=== PATIENT | female | born 1965 | race Caucasian/White ===

== ENCOUNTER 2018-12-25 17:29 | Emergency (ER) | payer OTHER ==
[~2018-12-25] VITALS: Ht 160 cm; Wt 74.8 kg
[~2018-12-25 17:29] MED LIST: DOCU-19 PO; OMEP40CA33 PO; RANI300T7 PO
[2018-12-25 17:34] VITALS: BP_SYST 159
--- NOTE | 2018-12-25 18:28 | NUR ---
Patient to ER bed 5 to gown for evaluation. Side rails up. Report given to Rupert BRADLEY.
--- NOTE | 2018-12-25 18:35 | NUR ---
Patient comes to ER in POV driven by with c/o Lt side abdominal pain radiating to back 07/03. Patient has a HX of IBS and takes motrin, ranitidine, omeprazole at home. Current pain started 5 days ago after a bout of diarrhea, and worsened until she came to ER today. Previous SX include removal of Breast Mass, Hysterectomy, Bladder lift, Repair of deviated septum.
--- NOTE | 2018-12-25 18:35 | NUR ---
Ricardo erica in EDM - 12/25/18 at 1841 by [email or web address] Patient comes to ER in POV driven by with c/o Lt side abdominal pain radiating to back 07/03. Patient has a HX of IBS and takes motrin, ranitidine, ope
--- NOTE | 2018-12-25 18:40 | NUR ---
DR Zuniga at bedside for ER evaluation
[2018-12-25 18:42] LABS: RED BLOOD CELL COUNT(AUTO) 4.66 MIL/uL (4.2-6.2); WHITE BLOOD COUNT (AUTO) 6.1 K/uL (4.8-10.8)
[2018-12-25 18:43] LABS: HEMOGLOBIN 13.7 g/dL (12.0-16.0); MEAN CORPUSCULAR HEMOGLOBIN 29 pg (27-31); MEAN CORPUSCULAR HGB CONC 33 % (32-36); MEAN CORPUSCULAR VOLUME 88 fL (79.0-98.0); NEUTROPHILS % (AUTO) 49.5 % (40.0-70.0); PLATELET COUNT (AUTO) 329 K/uL (130-430); RED CELL DISTRIBUTION WIDTH 13.2 % (9.0-15.0)
[2018-12-25 18:44] LABS: BASOPHILS # (AUTO) 0.1 K/uL (0.0-0.2); BASOPHILS % (AUTO) 1.1 % (0.0-2.0); EOSINOPHILS # (AUTO) 0.3 K/uL (0.0-0.4); EOSINOPHILS % (AUTO) 4.8 % (0.0-4.0); LYMPHOCYTES # (AUTO) 2.4 K/uL (1.0-5.5); MONOCYTES # (AUTO) 0.3 K/uL (0.0-1.0); MONOCYTES % (AUTO) 5.8 % (1.7-9.3)
[2018-12-25] MEDS ORDERED: MORPHINE 4 MG/ML INJ. SYRINGE IVP ONE (18:45)
[2018-12-25] MEDS ORDERED: ONDANSETRON HCL 4 MG/2 ML VIAL IVP ONE (18:45)
[2018-12-25] MEDS ORDERED: NACL 0.9% 1,000 ML IV ONE (18:45)
[2018-12-25 18:46] LABS: CALCIUM 8.6 mg/dL (8.4-11.0); CREATININE 0.61 mg/dL (0.55-1.30); POTASSIUM 3.5 mmol/L (3.5-5.1)
[2018-12-25 18:49] LABS: INR 0.9 (0.8-1.2); PROTHROMBIN TIME 9.5 SECS (9.5-12.5)
[2018-12-25 18:51] LABS: ALBUMIN 3.7 g/dL (3.4-4.8); TOTAL BILIRUBIN 0.5 mg/dL (0.0-1.0)
--- NOTE | 2018-12-25 19:06 | NUR ---
Report given to MIRNA Gandara for continuation of care.
--- NOTE | 2018-12-25 19:21 | NUR ---
1920 - Received report from MIRNA Emery. Pt here for abd pain, states pain has improved. Hx of diverticulitis. Pt also states that nausea has improved. Vss, BP mildly elevated. IV fluids infusing. Pt updated on plan for DC after fluids and re-eval. Spouse at bedside. Will continue to monitor.
--- NOTE | 2018-12-25 20:48 | NUR ---
2047 - Patient given written and verbal discharge instructions and verbalizes understanding. ER MD discussed with patient the results and treatment provided. Patient in stable condition. ID arm band removed. IV catheter removed intact and dressing applied, no active bleeding. Rx of tramadol, motrin, zofran given. Patient educated on pain management and to follow up with PMD. Pain Scale 6. Opportunity for questions provided and answered. Medication side effect fact sheet provided. A&OX4, ambulatory w/ steady gait, taken to vehicle in wheelchair for comfort
[2018-12-25 20:54] VITALS: BP_SYST 159
--- NOTE | 2018-12-25 20:56 | NUR ---
2047 - Pt states she feels better, IV fluids complete. Ready for discharge
== END 2018-12-25 20:54 | disposition home or self-care (01) ==
LOC: SED 17:29
DX: K58.0 Irritable bowel syndrome with diarrhea (principal); K21.9 Gastro-esophageal reflux disease without esophagitis; R03.0 Elevated blood-pressure reading, without diagnosis of hypertension; Z90.710 Acquired absence of both cervix and uterus; Z88.0 Allergy status to penicillin; Z79.899 Other long term (current) drug therapy
CPT/HCPCS: 36415; 74176; 80053; 85025; 85610; 85730; 87040; 96361; 96374; 96375; 99284; J2270; J2405; J7030

== ENCOUNTER 2022-11-17 08:11 | Inpatient (IN) | payer BC, OTHER ==
[~2022-11-17] VITALS: Ht 160 cm; Wt 71.4 kg
[~2022-11-17 08:11] MED LIST changes: +OMEP40CA20 PO; -OMEP40CA33 PO
[2022-11-17 08:16] VITALS: BP_SYST 134
--- NOTE | 2022-11-17 08:16 | NUR ---
Placed in room 07 . Placed on monitor and storage bin tender, blood pressure machine and pulse oximeter. To gown for exam. Side rails up. Report given to MIRNA WALDEN.
--- NOTE | 2022-11-17 08:19 | NUR ---
ER DR. LOZADA EXAMINING PT AT THE BEDSIDE
--- NOTE | 2022-11-17 08:20 | NUR ---
CODE STROKE CALLED
--- NOTE | 2022-11-17 08:25 | NUR ---
Patient transported to radiology via GURNEY, accompanied by MIRNA WALDEN AND CT STAFF.
--- NOTE | 2022-11-17 08:38 | NUR ---
PT REPORTS FEELING LEFT FACIAL NUMBNESS AFTER WAKING UP THIS MORNING, REPORTS GOING TO BED WITH A MILD HEADACHE. PT AAOX3, IN NAD. RESP EVEN AND UNLABORED,ON RA @99%. SPEAKING IN FULL CLEAR SENTENCES, NO SLURRED SPEECH NOTED. DENIES ANY CHNAGES IN VISION, USUALLY WEAR EYE GLASSES. SKIN W/D/I, BS AT BEDSIDE 110MG/DL. PT DENIES ANY N/V/D, NO RECENT ILLNESS. HEADCAHE IS INTERMITTENT, GRADUAL ONSET, ON FRONTAL LOBE, 4/10 AT THIS TIME. NO SENSITIVITY TO LIGHT. SAFETY PRECAUTIONS IN PLACE, WILL CONT TO MONITOR.
[2022-11-17 08:55] LABS: BASOPHILS # (AUTO) 0.1 K/uL (0.0-0.2); EOSINOPHILS # (AUTO) 0.1 K/uL (0.0-0.4); EOSINOPHILS % (AUTO) 2.7 % (0.0-4.0); HEMATOCRIT 39.8 % (36-48); HEMOGLOBIN 12.7 g/dL (12.0-16.0); LYMPHOCYTES # (AUTO) 2.1 K/uL (1.0-5.5); MEAN CORPUSCULAR HEMOGLOBIN 25 pg (27-31); MEAN CORPUSCULAR HGB CONC 32 % (32-36); MEAN CORPUSCULAR VOLUME 78 fL (79.0-98.0); MONOCYTES # (AUTO) 0.4 K/uL (0.0-1.0); MONOCYTES % (AUTO) 8.1 % (1.7-9.3); NEUTROPHILS # (AUTO) 2.7 K/uL (1.8-7.7); NEUTROPHILS % (AUTO) 49.2 % (40.0-70.0); PLATELET COUNT (AUTO) 367 K/uL (130-430); RED BLOOD CELL COUNT(AUTO) 5.13 MIL/uL (4.2-6.2); RED CELL DISTRIBUTION WIDTH 16.3 % (9.0-15.0); WHITE BLOOD COUNT (AUTO) 5.4 K/uL (4.8-10.8)
[2022-11-17 08:55] LABS: BILIRUBIN,URINE NEGATIVE (NEGATIVE); BLOOD, URINE NEGATIVE (NEGATIVE); CLARITY/URINE CLEAR (CLEAR); COLOR,URINE YELLOW (YELLOW); GLUCOSE,URINE NEGATIVE (NEGATIVE); KETONES,URINE NEGATIVE (NEGATIVE); LEUKOCYTE ESTERASE ,URINE NEGATIVE (NEGATIVE); NITRITE, URINE NEGATIVE (NEGATIVE); PH,URINE 7.5 (5.0-8.0); PROTEIN URINE NEGATIVE (NEGATIVE); UROBILINOGEN,URINE 0.2 (0.2-1.0)
[2022-11-17 09:05] LABS: ANION GAP 10 (5-15); CALCIUM 9.2 mg/dL (8.4-11.0); CHLORIDE 105 mmol/L (98-107); CREATININE 0.47 mg/dL (0.55-1.30); GLUCOSE 117 mg/dL (70-99); UREA NITROGEN, BLOOD 14 mg/dL (8-21)
[2022-11-17 09:06] LABS: GFR AFRICAN AMERICAN 174 mL/min (>90)
[2022-11-17 09:09] LABS: INR 0.9 (0.8-1.2); PROTHROMBIN TIME 9.6 SECS (9.5-12.5)
--- NOTE | 2022-11-17 09:10 | NUR ---
TELE NEURO DONE AT BEDSIDE
[2022-11-17 09:12] LABS: ALANINE AMINOTRANSFERASE 34 U/L (12-78); ASPARTATE AMINOTRANSFERASE 17 U/L (10-37); TOTAL BILIRUBIN 0.9 mg/dL (0.0-1.0)
[2022-11-17] MEDS ORDERED: NACL 0.9% 1,000 ML IV ONE (09:15)
[2022-11-17] MEDS ORDERED: iohexoL 350 mgI/mL, 100 ML INFUS..BTL IV ONE (09:24)
--- NOTE | 2022-11-17 09:51 | NUR ---
PT BACK FROM CT ANGIO, IV FLUIDS INFUSING WELL.
[2022-11-17] MEDS ORDERED: DIPHENHYDRAMINE INJ 50 MG/ML VIAL IVP ONE (10:00)
[2022-11-17] MEDS ORDERED: METOCLOPRAMIDE HCL 10 MG/2 ML VIAL IVP ONE (10:00)
[2022-11-17] MEDS ORDERED: DEXAMETHASONE SOD PHOSPHATE 10 MG/ML VIAL IVP ONE (10:00)
--- NOTE | 2022-11-17 10:17 | NUR ---
MEIDCATED ORDERED, WILL CONT TO MONITOR. PT ON TELE MONITOR.
--- NOTE | 2022-11-17 11:43 | NUR ---
NOTIFIED ED ADMITTING, PO[facility], REGARDING DR. LOZADA'S REQEUST FOR ADMISSION/TRANSFER. PER DR. LOZADA, PT IS STBALE FOR TRANSFER. WILL CONTACT PIECE WORKER REGARDING THIS MATTER. PER FACESHEET: [facility]
[2022-11-17] MEDS ORDERED: ASPIRIN 81 MG TAB.CHEW PO ONE (13:30)
--- NOTE | 2022-11-17 15:33 | NUR ---
PT REPORTSFEELING BETTER, DECRAESED NUMBNESS TO LEFT FACIAL SIDE. VSS. DENIES ANY PAIN
[2022-11-17] MEDS ORDERED: GADOTERATE MEGLUMINE 7.5 MMOL/15 ML VIAL IV ONE (15:35)
--- NOTE | 2022-11-17 16:24 | NUR ---
Admit bed requested Patient will be admitted to care of . Admitted to MS unit. Diagnosis TIA Inpatient (Yes or No) YES Observation (Yes or No) NO Orientation concerns or request close to nursing station (Yes or No) NO Covid Status NEGATIVE On vent or bipap NO Isolation requirements NO Needs a sitter NO From Home (Yes or if No enter name of facility) HOME Requires Dialysis (Yes or No) NO Med Rec Completed (Yes of No) YES
--- NOTE | 2022-11-17 17:56 | NUR ---
REPORT GIVEN TO KISHAN BRADLEY, UPDATED ON PT'S STATUS. PT STABLE FOR TRANSFER. VSS.
[2022-11-17 18:35] VITALS: BP_SYST 111
--- NOTE | 2022-11-17 18:42 | NUR ---
Patient will be admitted to care of DR PETERSEN. Admitted to unit. Will go to room . Belongings list completed. Complete and up to date summary report printed. SBAR report to be given at bedside with opportunity for questions.
[2022-11-17 18:51] VITALS: BP_SYST 111
[2022-11-17 19:00] VITALS: BP_SYST 115
--- NOTE | 2022-11-17 19:15 | NUR ---
change of shift.pt.presents quiescent affect;calm,resting.pt.presents admit dx r/o cva.pt.presents general status stable. respiratory status stable unlabored@room air.pt.capable to reposition self/ambulate w/out assistance.call light/telephone w/in access of the pt.
[2022-11-17] MEDS ORDERED: sumatriptan PO (19:25)
[2022-11-17] MEDS ORDERED: CYCLOBENZAPRINE PO (19:25)
[2022-11-17] MEDS ORDERED: ASPI-1155 PO (19:25)
[2022-11-17] MEDS ORDERED: TOP25 PO (19:25)
[2022-11-17] MEDS ORDERED: DICY10CA13 PO (19:25)
[2022-11-17 20:00] VITALS: BP_SYST 115
--- NOTE | 2022-11-17 20:00 | NUR ---
pt.assessed.v/s assessed values wnl.neuro checks attended to.lt.side presents weakness l>rt.side.pt.c/o pain to f/u w .pt.presents iv access location rt.forearm iv access lock status.pt.apprised that snacks/beverages available w/in the shift.pt.requested apple sauce/david crackers provided.pt.capable to reposition self.call light/telephone w/in access of the pt.
[2022-11-17] MEDS ORDERED: ONDANSETRON HCL 4 MG/2 ML VIAL IVP PRN (21:45)
[2022-11-17] MEDS ORDERED: TEMAZEPAM 7.5 MG CAPSULE PO PRN (21:45)
[2022-11-17] MEDS: IBUPROFEN 600 MG TABLET PO PRN (21:56)
--- NOTE | 2022-11-17 22:00 | NUR ---
pt.assessed. returned the page. apprised that the pt.requested pain.medication. ordered motrin:600mg po q-6hrs;prn;pain.motrin administered.to assess the efficacy of the pain medication per pain mgx protocol.pt.requested saltines crackers;[facility] pt.
--- NOTE | 2022-11-17 23:30 | NUR ---
pt.requested medication;sleep.restoril;15mg administered.to assess the efficacy of the medication per protocol. pt.requested saltine crackers administered.
[2022-11-18] VITALS: BP_SYST 112
--- NOTE | 2022-11-18 | NUR ---
pt.assessed.v/s assessed values wnl.no c/o pain,nausea.no requests posited@this hour.pt.capable to reposition self.call light/ telephone w/in access of the pt.
--- NOTE | 2022-11-18 02:00 | NUR ---
pt.assessed.pt.quiescent.per flacc pain mgx pt.absent facial grimaces/body posturing.pt.capable reposition self.call light/ telephone w/in access of the pt.
--- NOTE | 2022-11-18 04:00 | NUR ---
pt.assessed.pt.quiescent;somnolent.per flacc pain mgx pt.absent facial grimaces/body posturing.pt.capable to reposition self. call light/telephone w/in access of the pt.
[2022-11-18] MEDS: IBUPROFEN 600 MG TABLET PO PRN (05:50)
--- NOTE | 2022-11-18 06:00 | NUR ---
pt.assessed.pt.requested medication;pain.motrin;600mg po administered.to assess the efficacy of the pain medication per pain mgx protocol.pt.requested blanket;provided.no additional requests posited@this hour.call light/telephone w/in access of the pt.
[2022-11-18 15:58] VITALS: BP_SYST 136
== END 2022-11-18 16:30 | disposition home or self-care (01) | DRG 103 ==
LOC: SED 08:11 → SMU 14:40
PROVIDERS: ADMIT Specialist; ATTEND Specialist
DX: G43.909 Migraine, unspecified, not intractable, without status migrainosus (principal); K21.9 Gastro-esophageal reflux disease without esophagitis; I73.9 Peripheral vascular disease, unspecified; Z20.822 Contact with and (suspected) exposure to COVID-19; Z88.0 Allergy status to penicillin
CPT/HCPCS: 36415; 70450-TC; 70496; 70498; 70553; 76376; 80053; 81003; 84484; 85025; 85610-TC; 85730-TC; 86886; 86900; 86901; 93005; 96361; 96374; 96375; 99285; A9575; J1100; J1200; J2765; Q9967

== ENCOUNTER 2024-06-11 06:05 | Day surgery (SDC) | payer BC ==
[~2024-06-11] VITALS: Ht 33 cm; Wt 0.5 kg
[~2024-06-11 06:05] MED LIST changes: +ASPI-1155 PO; +CYCLOBENZAPRINE PO; +DICY-14 PO; -OMEP40CA20 PO; -RANI300T7 PO; +TOP25 PO; +sumatriptan PO
[2024-06-11] MEDS ORDERED: MIDAZOLAM HCL 5 MG/5 ML VIAL ONE (07:10)
[2024-06-11] MEDS ORDERED: MEPERIDINE 100 MG INJ. 100 MG/ML VIAL ONE (07:10)
[2024-06-11 12:02] VITALS: O2SAT 96
[2024-06-11 13:34] VITALS: BP_SYST 114; PULSE 72; RESP 17
== END 2024-06-11 09:25 | disposition home or self-care (01) ==
LOC: SMU 06:05 → SDS 06:05
PROVIDERS: ATTEND Internal Medicine Gastroenterology
DX: R13.10 Dysphagia, unspecified (principal); K29.30 Chronic superficial gastritis without bleeding; K31.89 Other diseases of stomach and duodenum; K31.7 Polyp of stomach and duodenum; K44.9 Diaphragmatic hernia without obstruction or gangrene; G43.909 Migraine, unspecified, not intractable, without status migrainosus; K21.9 Gastro-esophageal reflux disease without esophagitis; Z90.710 Acquired absence of both cervix and uterus; Z98.890 Other specified postprocedural states; Z88.0 Allergy status to penicillin; Z79.899 Other long term (current) drug therapy
CPT/HCPCS: 43248; 43239; 99152; 88305; 88312; 88313; G0378; J2250; J2175

== ENCOUNTER 2024-07-10 18:05 | Emergency (ER) | payer BC ==
[~2024-07-10] VITALS: Ht 165.1 cm; Wt 72.6 kg
[2024-07-10 18:05] VITALS: BP_SYST 152; PULSE 107; RESP 18; TEMP 98.3; O2SAT 98
[2024-07-10] MEDS ORDERED: iohexoL 350 mgI/mL, 100 ML INFUS..BTL IV ONE (18:45)
[2024-07-10 18:50] LABS: BASOPHILS # (AUTO) 0.1 K/uL (0.0-0.2); BASOPHILS % (AUTO) 0.7 % (0.0-2.0); EOSINOPHILS # (AUTO) 0.3 K/uL (0.0-0.4); EOSINOPHILS % (AUTO) 3.8 % (0.0-4.0); HEMATOCRIT 39.1 % (36-48); HEMOGLOBIN 13.4 g/dL (12.0-16.0); LYMPHOCYTES # (AUTO) 3.3 K/uL (1.0-5.5); LYMPHOCYTES % (AUTO) 41.7 % (20.5-51.5); MEAN CORPUSCULAR HEMOGLOBIN 29 pg (27-31); MEAN CORPUSCULAR HGB CONC 34 % (32-36); MEAN CORPUSCULAR VOLUME 84 fL (79.0-98.0); MONOCYTES # (AUTO) 0.6 K/uL (0.0-1.0); MONOCYTES % (AUTO) 7.8 % (1.7-9.3); NEUTROPHILS # (AUTO) 3.6 K/uL (1.8-7.7); PLATELET COUNT (AUTO) 342 K/uL (130-430); RED BLOOD CELL COUNT(AUTO) 4.69 MIL/uL (4.2-6.2); RED CELL DISTRIBUTION WIDTH 13.7 % (9.0-15.0); WHITE BLOOD COUNT (AUTO) 7.9 K/uL (4.8-10.8)
[2024-07-10 19:13] LABS: ALANINE AMINOTRANSFERASE 61 U/L (12-78); ANION GAP 9 (5-15); ASPARTATE AMINOTRANSFERASE 32 U/L (10-37); CALCIUM 9.6 mg/dL (8.4-11.0); CARBON DIOXIDE 29 mmol/L (23-29); CHLORIDE 103 mmol/L (98-107); CREATININE 0.68 mg/dL (0.55-1.30); GFR AFRICAN AMERICAN 114 mL/min (>90); GFR NON AFRICAN-AMERICAN 94 mL/min (>90); GLUCOSE 102 mg/dL (74-106); POTASSIUM 3.8 mmol/L (3.5-5.1); SODIUM SERUM 141 mmol/L (136-145); TOTAL BILIRUBIN 0.4 mg/dL (0.0-1.0); TOTAL PROTEIN, SERUM 8.1 g/dL (6.4-8.3); UREA NITROGEN, BLOOD 14 mg/dL (8-21)
[2024-07-10] MEDS: ACETAMINOPHEN 500 MG TABLET PO ONE (20:01)
[2024-07-10] MEDS: METOCLOPRAMIDE HCL 10 MG/2 ML VIAL IVP ONE (20:02)
[2024-07-10] MEDS: ASPIRIN 81 MG TAB.CHEW PO ONE (21:31)
[2024-07-10] MEDS ORDERED: ASPI-1393 PO (21:33)
[2024-07-10 21:45] VITALS: BP_SYST 136; PULSE 89; RESP 16; TEMP 96.6; O2SAT 98
== END 2024-07-10 21:45 | disposition home or self-care (01) ==
LOC: SED 18:05
DX: G43.109 Migraine with aura, not intractable, without status migrainosus (principal); R53.1 Weakness; R20.0 Anesthesia of skin; R00.0 Tachycardia, unspecified; K21.9 Gastro-esophageal reflux disease without esophagitis; Z88.0 Allergy status to penicillin; Z79.899 Other long term (current) drug therapy; Z79.2 Long term (current) use of antibiotics
CPT/HCPCS: 99285; 70450; 96374; 71045; 80053; 83735; 85025; 84484; 36415; 93005; 70496; 70498; 82948; Q9967; J2765